=== PATIENT | female | born 1955 | race Hispanic/Latino ===

== ENCOUNTER 2017-01-06 08:45 | Emergency (ER) | payer BC, SELFPAY ==
[2017-01-06] MEDS ORDERED: Iopamidol 370 76% 100 ML VIAL ONE (09:00)
[2017-01-06] MEDS ORDERED: Ondansetron HCl/PF 4 MG/2 ML Vial ONE (09:19)
[2017-01-06] MEDS ORDERED: Morphine 4 MG/ML Carpuject ONE (09:19)
[2017-01-06 09:38] LABS: #Basophils 0.1 thou/uL (0.0-0.2); #Eosinphils 0.1 thou/uL (0.0-0.7); #Lymphocytes 1.1 thou/uL (1.20-3.40); #Monocytes 0.7 thou/uL (0.11-0.59); #Neutrophils 11.6 thou/uL (1.40-6.50); %Basophils 0.8 % (0.0-1.0); %Eosinophils 0.6 % (0.0-10.0); %Lymphocytes 8.3 % (21.0-51.0); %Monocytes 5.3 % (0.0-10.0); Hematocrit 37.4 % (36.0-47.0); Mean Platelet Volume 7.7 fL (7.4-10.4); Red Blood Cell (RBC) Count 4.19 mill/uL (4.20-5.40); White Blood Cell (WBC) Count 13.6 thou/uL (4.8-10.8)
[2017-01-06 09:55] LABS: Prothrombin Time 13.5 SEC (12.0-14.7)
[2017-01-06 09:56] LABS: PTT 33.3 SEC (22.9-36.1)
[2017-01-06 10:02] LABS: ALT (SGPT) 23 U/L (8-55); AST (SGOT) 15 U/L (5-34); Alkaline Phosphatase 63 U/L (40-150); Anion Gap 16 mmol/L (10-20); BUN (Urea Nitrogen) 15 mg/dL (9.8-20.1); Bilirubin, Total 1.5 mg/dL (0.2-1.2); Calc. Creatinine Clearance 0 mL/min (70-130); Calcium 9.3 mg/dL (7.8-10.44); Carbon Dioxide 22 mmol/L (22-29); Chloride 104 mmol/L (98-107); Estimated GFR-MDRD Greater than 90; Lipase 10 U/L (8-78); Magnesium 1.8 mg/dL (1.6-2.6); Protein, Total 7.1 g/dL (6.0-8.3)
[2017-01-06 10:06] LABS: Lactic Acid - Sepsis 1.8 mmol/L (0.5-2.2)
[2017-01-06 11:56] LABS: Bilirubin Negative (Negative); Blood, Urine Negative (Negative); Glucose, Urine (Dipstick) Negative (Negative); Ketone, Urine Negative (Negative); Nitrite Negative (Negative); Protein, Urine (Dipstick) Negative (Neg-Trace); Urobilinogen 0.2 mg/dL (0.2-1.0)
[2017-01-06 12:04] LABS: Bacteria/HPF 2+ HPF (None Seen); RBC/HPF None Seen HPF (0-3)
--- NOTE | 2017-01-06 12:07 | CT ---
CT OF THE ABDOMEN AND PELVIS WITH IV CONTRAST: INDICATIONS: Right upper quadrant and right lower quadrant pain. FINDINGS: There is bibasilar atelectasis. There is fatty infiltration of the liver. The gallbladder is surgi candido absent. The pancreas, adrenal glands, and spleen appear within normal limits. There are tiny hypodensities involving both kidneys that are difficult to characterize due to their size, but are statistically likely reflective of cysts. No free fluid or enlarged lymph nodes are evident. There is a fat-containing paraumbilical hernia. There is a normal appendix in the right lower quadrant. No free fluid is evident. The bladder, rec nilesh, and perirectal soft tissues are unremarkable. There are a few scattered diverticula present wi thout evidence of active diverticulitis. No definite acute osseous abnormality is evident. IMPRESSION: 1. Fat-containing paraumbilical hernia. 2. Fatty liver. 3. Cholecystectomy. 4. Renal hypodensity, too small to characterize. 5. Colonic diverticulosis. 6. Normal appendix. POS: [facility]
--- NOTE | 2017-01-06 13:07 | RAD ---
SEMIUPRIGHT PORTABLE CHEST 1 VIEW: Date: 01/06/17 HISTORY: 61-year-old female with fever and abdominal pain. FINDINGS/IMPRESSION: Heart size is within normal limits. The lungs are clear. No pneumonia, edema, pleural effusion, or o ther acute intrathoracic disease. POS: [facility]
[2017-01-06] MEDS ORDERED: Ciprofloxacin 500 MG TAB ONE (14:05)
[2017-01-06] MEDS ORDERED: Acetaminophen/Codeine 30-300mg Tablet ONE (14:05)
== END 2017-01-06 14:19 | disposition home or self-care (01) ==
LOC: SCSER 08:45
DX: N39.0 Urinary tract infection, site not specified (principal); E11.9 Type 2 diabetes mellitus without complications; I10 Essential (primary) hypertension; F32.9 Major depressive disorder, single episode, unspecified; Z79.84 Long term (current) use of oral hypoglycemic drugs; Z79.899 Other long term (current) drug therapy
CPT/HCPCS: 71010; 74177; 80053; 81003; 81015; 83605; 83690; 83735; 85025; 85610; 85730; 87040; 87077; 87149; 87186; 93005; 96374; 96375; J2270; J2405

== ENCOUNTER 2017-01-09 00:12 | Inpatient (IN) | payer OTHER, SELFPAY ==
[2017-01-09] MEDS ORDERED: Ketorolac Tromethamine 30 MG/ML VIAL ONE (00:31)
[2017-01-09] MEDS ORDERED: Ondansetron HCl/PF 4 MG/2 ML Vial ONE (00:31)
[2017-01-09 00:50] LABS: #Eosinphils 0.1 thou/uL (0.0-0.7); #Lymphocytes 0.8 thou/uL (1.20-3.40); #Monocytes 0.6 thou/uL (0.11-0.59); #Neutrophils 6.1 thou/uL (1.40-6.50); %Basophils 0.5 % (0.0-1.0); %Eosinophils 1.6 % (0.0-10.0); %Lymphocytes 10.5 % (21.0-51.0); %Monocytes 7.5 % (0.0-10.0); Hematocrit 32.7 % (36.0-47.0); Mean Platelet Volume 7.3 fL (7.4-10.4); Red Blood Cell (RBC) Count 3.75 mill/uL (4.20-5.40); White Blood Cell (WBC) Count 7.6 thou/uL (4.8-10.8)
[2017-01-09] MEDS ORDERED: Sodium Chloride 0.9% 100 ML ONE (00:54)
[2017-01-09] MEDS ORDERED: cefTRIAXone\\ROCEPHIN 2 GM VIAL ONE (00:54)
[2017-01-09 01:08] LABS: ALT (SGPT) 32 U/L (8-55); AST (SGOT) 19 U/L (5-34); Alkaline Phosphatase 88 U/L (40-150); Anion Gap 14 mmol/L (10-20); BUN (Urea Nitrogen) 20 mg/dL (9.8-20.1); Bilirubin, Total 1.1 mg/dL (0.2-1.2); Calc. Creatinine Clearance 0 mL/min (70-130); Calcium 9.1 mg/dL (7.8-10.44); Carbon Dioxide 23 mmol/L (22-29); Chloride 102 mmol/L (98-107); Estimated GFR-MDRD 89; Globulin 3.2 g/dL (2.4-3.5); Lactic Acid - Sepsis 0.7 mmol/L (0.5-2.2); Lipase 10 U/L (8-78); Protein, Total 6.9 g/dL (6.0-8.3)
[2017-01-09 01:27] LABS: Bilirubin Negative (Negative); Blood, Urine Trace (Negative); Glucose, Urine (Dipstick) Negative (Negative); Ketone, Urine Negative (Negative); Nitrite Negative (Negative); Protein, Urine (Dipstick) 30 mg/dL (Neg-Trace)
[2017-01-09 01:38] LABS: RBC/HPF 0-3 HPF (0-3); Squamous Epithelial 0-3 HPF (0-3); WBC/HPF 0-3 HPF (0-3)
[2017-01-09 01:39] LABS: Bacteria/HPF Rare-Few HPF (None Seen); Hyaline Casts/LPF 0-3 HYALINE CAST LPF (0-3 Hyaline)
[2017-01-09] MEDS ORDERED: Acetaminophen 500 MG TAB PO PRN (03:58)
[2017-01-09] MEDS ORDERED: Ondansetron ODT 4 MG TAB PO PRN (03:58)
[2017-01-09] MEDS ORDERED: hydrALAZINE 20 MG/ML VIAL SLOW IVP PRN (03:58)
[2017-01-09] MEDS ORDERED: Dextrose 50% Abboject 50 ML SYRINGE SLOW IVP PRN (03:58)
[2017-01-09] MEDS ORDERED: Ondansetron HCl/PF 4 MG/2 ML Vial IVP PRN (03:58)
[2017-01-09] MEDS ORDERED: cloNIDine 0.1 MG TAB PO PRN (03:58)
[2017-01-09] MEDS ORDERED: Dextrose 5% in Water 1,000 ML IV PRN (03:58)
[2017-01-09] MEDS ORDERED: HumaLOG 300 UNITS/3 ML VIAL SC PRN ×2 (03:58)
[2017-01-09] MEDS ORDERED: [UNRECOGNIZED DRUG - OTHER] IVPB PRN (04:02)
[2017-01-09] MEDS ORDERED: VANCOMYCIN IVPB PRN (04:02)
[2017-01-09] MEDS: Sodium Chloride 0.9% 1,000 ML IV SCH ×5 (04:38→23:16)
[2017-01-09 04:47] LABS: Lactic Acid - Sepsis 0.9 mmol/L (0.5-2.2)
[2017-01-09] MEDS: Levothyroxine Sodium 50 MCG TAB PO SCH (05:35)
[2017-01-09] MEDS: Ampicillin 2 GM, Syringe 5.2 ML in Sterile Water 14.8 ML SLOW IVP SCH ×4 (05:38→23:21)
[2017-01-09] MEDS: Ketorolac Tromethamine 30 MG/ML VIAL IVP SCH ×4 (05:39→23:17)
[2017-01-09] MEDS ORDERED: Ampicillin 2 GM in Sodium Chloride 0.9% 100 ML IVPB SCH (06:00)
--- NOTE | 2017-01-09 08:49 | HP ---
DATE OF ADMISSION: 01/09/2017 PRIMARY CARE PROVIDER: Dr. Walker. CHIEF COMPLAINT: Right flank and abdominal pain. HISTORY OF PRESENT ILLNESS: This is a 61-year-old female who presents to [facility] in transfer from [facility] after presenting with p ersistent right flank and abdominal pain. Patient states the symptoms began approximately 4 days pr ior with right flank pain and mild dysuria presenting to urgent care for evaluation. Patient was in itially evaluated and diagnosed with urinary tract infection, treated with ciprofloxacin, acetaminop hen, and released home. Patient returned within 24 hours with persistent and increasing pain in the right flank region and abdominal wall, undergoing evaluation. Blood cultures x2 drawn on 7 at 9:30 a.m. revealed group C streptococcus species in both sets of blood cultures. Patient was t reated with IV vancomycin and Rocephin and transferred to [facility] for furt her IV antibiotic therapy. Patient states she has had no similar history of urinary tract infection s. Patient does state that she returned from a recent cruise within the last 2 weeks. Patient carmen ed any history of diarrhea, some nausea without emesis. Patient states her last bowel movement was approximately 4 days prior to this evaluation. Patient states she was recently diagnosed with diabe michele mellitus, placed on metformin with dietary modification. Patient denied any prominent fever, bu t felt chilled. Patient denied any hematuria, hematemesis, or melena. Patient states she had a his tory of gallstones, undergoing a cholecystectomy remotely, but no recent surgical interventions. Aaron preston denies any recent exposure to antibiotic therapy. Patient underwent CT imaging of the abdomen and pelvis on 01/06/2017 showing no acute process and normal appearing appendix. Patient underwent repeat CT imaging of the abdomen and pelvis on 01/09/2017 showing no acute findings. Patient was t ransferred to [facility] as stated previously for admission. PAST MEDICAL HISTORY: 1. Diabetes mellitus type 2 on oral hypoglycemics. 2. Hypertension. 3. Hypothyroidism. PAST SURGICAL HISTORY: Status post cholecystectomy. CURRENT MEDICATIONS: 1. Levothyroxine 50 mcg 1 tablet p.o. daily. 2. Lisinopril 20 mg p.o. b.i.d. 3. Metformin 500 mg p.o. b.i.d. ALLERGIES: No known drug allergies. FAMILY HISTORY: No inheritable diseases per patient report. SOCIAL HISTORY: Patient is , residing in [place], [place]. No current alcohol, tobacco or il licit drug use. REVIEW OF SYSTEMS: The following complete review of systems was negative, unless otherwise mentione d in the HPI or below: CONSTITUTIONAL: Weight loss or gain, ability to conduct usual activities. SKIN: Rash, itching. EYES: Double vision, pain. ENT/MOUTH: Nose bleeding, neck stiffness, pain, tenderness. CARDIOVASCULAR: Palpitations, dyspnea on exertion, orthopnea. RESPIRATORY: Shortness of breath, wheezing, cough, hemoptysis, fever or night sweats. GASTROINTESTINAL: Poor appetite, abdominal pain, heartburn, nausea, vomiting, constipation, or diar brendan. GENITOURINARY: Urgency, frequency, dysuria, nocturia. MUSCULOSKELETAL: Pain, swelling. NEUROLOGIC/PSYCHIATRIC: Anxiety, depression. ALLERGY/IMMUNOLOGIC: Skin rash, bleeding tendency. Otherwise negative except as stated per HPI. PHYSICAL EXAMINATION: VITAL SIGNS: Currently, blood pressure 156/80, pulse 69, respiratory rate is 18, temperature 98.2 d egrees Fahrenheit, O2 saturation 93% on room air. GENERAL APPEARANCE: This is a 61-year-old female, tired and ill-appearing, responsive to q uestions. HEENT: Pupils are equal, round, and reactive to light and accommodation. Extraocular muscles are i ntact. No scleral icterus, no conjunctival injection. Nares patent. OP is clear. Oral mucosa dry appearing. NECK: Supple, no cervical adenopathy, no thyromegaly, no carotid bruits, no JVD appreciated. Cervi marleny spine with full active and passive range of motion. CHEST: Lungs are clear to auscultation bilaterally with diminished breath sounds in the bases. CARDIOVASCULAR: S1 and S2, without noted murmur. ABDOMEN: Obese, soft with tenderness to palpation in the right upper quadrant and right flank with right CVA tenderness. Bowel sounds are positive in all four quadrants. No palpable mass. [place] s are difficult to palpate due to patient's body habitus. EXTREMITIES: Warm and dry with fair turgor. No clubbing, cyanosis or asymmetric edema appreciated. Pulses palpable distally at the dorsalis pedis, posterior tibial, and popliteal arteries bilateral ly. Capillary refill less than 2 seconds. NEUROLOGIC: Cranial nerves II-XII are grossly intact. No focal or lateralizing signs appreciated. PERTINENT LABORATORY DATA AND X-RAY FINDINGS: Basic metabolic profile within normal limits. Glucos e 115. Lactic acid level 0.7, calcium 9.1. LFTs within normal limits. Lipase 10. CBC showed a [facility] blood cell count of 7.6, hemoglobin 11, hematocrit 33, platelet count 223 with 80% neutrophilia. Urinalysis positive for protein and trace blood. Blood cultures x2 from 01/06/2017, 2/2 positive for group C streptococcus species, sensitive to vancomycin and ampicillin. Portable chest x-ray deanna ed on 01/06/2017 showed no acute cardiopulmonary process. CT of the abdomen and pelvis dated on showed no acute intraabdominal process. ASSESSMENT AND PLAN: 1. Sepsis/systemic inflammatory response syndrome secondary to the group C streptococcus, urinary t ract infection. We will admit to the medical floor. Continue vancomycin 1.25 grams IV q.12 hours w ith additional ampicillin 2 grams IV q.6 hours. We will continue double coverage for group C strept ococcus for approximately 24 hours, deescalating coverage to single agent. Continue intravenous flu ids with normal saline at 125 mL per hour. Continue sepsis protocol bundle. Repeat CBC in the a.m. 2. Abdominal/right flank pain. Suspect early pyelonephritis with group C streptococcus. Continue IV antibiotic therapy as outlined in #1. 3. Diabetes mellitus type 2. Hold metformin during acute infection. Insulin sliding scale for ref lexive coverage. Accu-Cheks before meals and at bedtime. 4. Hypothyroidism. Resume levothyroxine 50 mcg p.o. daily. 5. Hypertension. Resume lisinopril 20 mg p.o. b.i.d. 6. Prophylaxis. Sequential compression devices while in bed, Pepcid 20 mg p.o. b.i.d. 7. Code status is FULL. Surrogate medical decision maker is patient's spouse.
[2017-01-09] MEDS ORDERED: FLU VACC QS2017-18 36 mo. & older 0.5 ML SYRINGE IM ONE (09:00)
[2017-01-09] MEDS: Famotidine 20 MG TAB PO SCH ×2 (09:03→21:05)
--- NOTE | 2017-01-09 09:22 | CT ---
PRELIMINARY REPORT/[facility]/EMERGENCY AFTER HOURS PROCEDURE: EXAM: CT Abdomen and Pelvis With Intravenous Contrast CLINICAL HISTORY: 61 years old, female; Pain; Abdominal pain; Patient HX: Patient presents for evaluation of abdominal pain. Symptoms are localized, most severe in the right lower quadrant, radiation, to the back, no m igration of pain. TECHNIQUE: Axial computed tomography images of the abdomen and pelvis with intravenous contrast. Coronal reformatted images were created and reviewed. COMPARISON: No relevant prior studies available. FINDINGS: Lower thorax: No acute findings. ABDOMEN: Liver: Normal. Gallbladder and bile ducts: Gallbladder is surgically absent. Pancreas: Normal. Spleen: Normal. Adrenals: Normal. Kidneys and ureters: Simple right renal cyst. Stomach and bowel: Normal. Appendix: No findings to suggest acute appendicitis. PELVIS: Bladder: Normal. Reproductive: Normal as visualized. ABDOMEN and PELVIS: Intraperitoneal space: Normal. No free air. No significant fluid collection. Bones/joints: Multilevel thoracolumbar spine degenerative changes. No acute fracture. No dislocation . Soft tissues: Small fat-containing ventral hernia, without acute complications. Vasculature: Multiple phleboliths within the pelvis. No abdominal aortic aneurysm. Lymph nodes: Normal. IMPRESSION: 1. No acute findings. 2. Non-acute findings are described above. Thank you for allowing us to participate in the care of your patient. Dictated and Authenticated by: Camilo Borjas MD 01/09/2017 1:51 AM Central Time ([place] \T\ [place]) FINAL REPORT CT OF ABDOMEN AND PELVIS: DATE: 01/09/17. COMPARISON: 01/06/17. HISTORY: Abdominal pain, most severe in the right lower quadrant. FINDINGS: No free intraperitoneal air or fluid. Diffuse hypodensity of the hepatic parenchyma suggests steato sis with probable sparing in the region of the gallbladder fossa. Cholecystectomy clips are present. Spleen, pancreas, adrenal glands, and kidneys demonstrate no acu te findings. There is a fat-containing lobulated umbilical hernia. Scattered colonic diverticulosis noted with no evidence for diverticulitis. Appendix appears within normal limits. No evidence for bowel obstruction. Vascular structures appear patent. No lymphade nopathy noted. No acute osseous abnormality. IMPRESSION: No acute findings. POS: [facility]
[2017-01-09] MEDS: Vancomycin HCl 1.25 GM in Sodium Chloride 0.9% 250 ML 250 ML IVPB SCH (12:20)
[2017-01-09] MEDS ORDERED: Heparin 1,000 UNITS/ML VIAL ONE (17:01)
[2017-01-10] MEDS: Vancomycin HCl 1.25 GM in Sodium Chloride 0.9% 250 ML 250 ML IVPB SCH ×2 (00:58→11:07)
[2017-01-10 05:04] LABS: Band 4 % (5-11); Hematocrit 34.9 % (36.0-47.0); Mean Platelet Volume 7.4 fL (7.4-10.4); Neutrophil 54 % (42-75); Red Blood Cell (RBC) Count 3.81 mill/uL (4.20-5.40); White Blood Cell (WBC) Count 5.5 thou/uL (4.8-10.8)
[2017-01-10 05:14] LABS: ALT (SGPT) 36 U/L (8-55); AST (SGOT) 25 U/L (5-34); Alkaline Phosphatase 89 U/L (40-150); Anion Gap 12 mmol/L (10-20); BUN (Urea Nitrogen) 12 mg/dL (9.8-20.1); Bilirubin, Total 0.7 mg/dL (0.2-1.2); Calc. Creatinine Clearance 120 mL/min (70-130); Calcium 8.7 mg/dL (7.8-10.44); Carbon Dioxide 23 mmol/L (22-29); Chloride 106 mmol/L (98-107); Estimated GFR-MDRD Greater than 90; Globulin 3.2 g/dL (2.4-3.5); Protein, Total 6.6 g/dL (6.0-8.3)
[2017-01-10] MEDS: Ketorolac Tromethamine 30 MG/ML VIAL IVP SCH ×3 (05:25→18:18)
[2017-01-10] MEDS: Sodium Chloride 0.9% 1,000 ML IV SCH ×3 (05:28→20:55)
[2017-01-10] MEDS: Levothyroxine Sodium 50 MCG TAB PO SCH (05:29)
[2017-01-10] MEDS: Ampicillin 2 GM, Syringe 5.2 ML in Sterile Water 14.8 ML SLOW IVP SCH ×2 (05:40→10:59)
[2017-01-10] MEDS: metFORMIN 500 MG TAB PO SCH ×2 (09:40→20:51)
[2017-01-10] MEDS: Lisinopril 20 MG TAB PO SCH ×2 (09:40→20:51)
[2017-01-10] MEDS: Famotidine 20 MG TAB PO SCH ×2 (09:41→20:51)
[2017-01-10] MEDS: Morphine 4 MG/ML VIAL SLOW IVP PRN (10:59)
[2017-01-10 11:00] LABS: Amphetamine Not Detected (NotDetected); Methadone Not Detected (NotDetected); Methamphetamine Not Detected (NotDetected)
[2017-01-10 11:39] LABS: Vancomycin, Trough 8.9 ug/mL
--- NOTE | 2017-01-10 13:24 | PDOC.PN ---
- Subjective Encounter Start Date: 01/10/17 Encounter Start Time: 10:15 -: old records requested/rev Patient seen and examined. still has right lumbar pain, no fever. No overnight events - Objective Resuscitation Status: Resuscitation Status FULL:Full Resuscitation MAR Reviewed: Yes Vital Signs & Weight: Vital Signs (12 hours) Temp Pulse Resp BP BP Pulse Ox 01/10/17 12:17 98.6 F 65 18 177/78 H 94 L 01/10/17 09:40 159/84 H 01/10/17 08:00 98.8 F 65 16 159/84 H 94 L I&O: 01/09/17 01/10/17 01/11/17 06:59 06:59 06:59 Intake Total 540 2610 Balance 540 2610 Result Diagrams: 01/10/17 04:33 01/10/17 04:33 Additional Labs: Accuchecks 01/10/17 01/10/17 01/09/17 12:17 04:39 19:40 POC Glucose 127 H 80 149 H 01/09/17 01/09/17 15:41 11:34 POC Glucose 83 105 Radiology Reviewed by me: Yes Phys Exam - Physical Examination Constitutional: NAD HEENT: PERRLA, moist MMs, sclera anicteric Neck: no JVD, supple Respiratory: no wheezing, no rales, no rhonchi Cardiovascular: RRR, no significant murmur, no rub Gastrointestinal: soft, non-tender, no distention, positive bowel sounds right lumbar pain Musculoskeletal: no edema, pulses present Neurological: non-focal, normal sensation, moves all 4 limbs Lymphatic: no nodes Psychiatric: normal affect, A&O x 3 Skin: no rash, normal turgor Dx/Plan (1) Bacteremia due to Streptococcus Code(s): R78.81 - BACTEREMIA; B95.5 - UNSP STREPTOCOCCUS THE CAUSE OF DISEASES CLASSD [id number] Status: Acute Comment: group C streptococcus (2) Sepsis Code(s): A41.9 - SEPSIS, UNSPECIFIED ORGANISM Status: Acute (3) Diabetes type 2, controlled Code(s): E11.9 - TYPE 2 DIABETES MELLITUS WITHOUT COMPLICATIONS Status: Chronic (4) Hypertension Code(s): I10 - ESSENTIAL (PRIMARY) HYPERTENSION Status: Chronic (5) Hypothyroidism Code(s): E03.9 - HYPOTHYROIDISM, UNSPECIFIED Status: Chronic - Plan cont current plan of care, continue antibiotics * echo * consult ID * continue IVF * continue vancomycin and ampicillin * follow up on repeat blood culture * medication reviewed as below * symptomatic treatment * add morphin for pain control. Review of Systems - Review of Systems Constitutional: negative: Fever, Chills, Sweats, Weakness, Malaise, Other Eyes: negative: Pain, Vision Change, Conjunctivae Inflammation, Eyelid Inflammation, Redness, Other ENT: negative: Ear Pain, Ear Discharge, Nose Pain, Nose Discharge, Nose Congestion, Mouth Pain, Mouth Swelling, Throat Pain, Throat Swelling, Other Respiratory: negative: Cough, Dry, Shortness of Breath, Hemoptysis, SOB with Excertion, Pleuritic Pain, Sputum, Wheezing Cardiovascular: negative: Chest Pain, Palpitations, Orthopnea, Paroxysmal Noc. Dyspnea, Edema, Light Headedness, Other Gastrointestinal: Abdominal Pain. negative: Nausea, Vomiting, Diarrhea, Constipation, Melena, Hematochezia, Other Genitourinary: negative: Dysuria, Frequency, Incontinence, Hematuria, Retention , Other Musculoskeletal: negative: Neck Pain, Shoulder Pain, Arm Pain, Back Pain, Hand Pain, Leg Pain, Foot Pain, Other Skin: negative: Rash, Lesions, Nilson, Bruising, Other - Medications/Allergies Allergies/Adverse Reactions: Allergies Allergy/AdvReac Type Severity Reaction Status Date / Time No Known Allergies Allergy Unverified 01/09/17 02:11 Medications: Current Medications Acetaminophen (Tylenol) 1,000 mg PO Q6H PRN PRN Reason: Headache/Fever or Mild Pain Clonidine (Catapres) 0.1 mg PO Q4H PRN PRN Reason: Systolic BP > 180 Dextrose/Water (Dextrose 50%) 25 gm SLOW IVP PRN PRN PRN Reason: Hypoglycemia Famotidine (Pepcid) 20 mg PO BID SANTOSH Last Admin: 01/10/17 09:41 Dose: 20 mg Glucagon (Glucagon) 1 mg IM PRN PRN PRN Reason: Hypoglycemia Hydralazine HCl (Apresoline) 10 mg SLOW IVP Q4H PRN PRN Reason: Systolic BP > 180 Dextrose/Water (D5w) 1,000 mls @ 0 mls/hr IV .Q0M PRN; As Directed PRN Reason: Hypoglycemia Sodium Chloride (Normal Saline 0.9%) 1,000 mls @ 125 mls/hr IV .Q8H FOR[facility], [facility]1983 Last Admin: 01/10/17 09:39 Dose: 1,000 mls Ampicillin Sodium 2 gm/ (Syringe 5.2 ml/ Sterile Water) 20 mls @ 60 mls/hr SLOW IVP 0500,1100,1700,2300 [facility], [facility]1983 Last Admin: 01/10/17 10:59 Dose: 20 mls Vancomycin HCl 1.25 gm/ Sodium (Chloride) 250 mls @ 166.67 mls/hr IVPB 0400, 1200,2000 [facility], [facility]1983 Insulin Human Lispro (Humalog) 0 units SC .MILD SLIDING SCALE PRN PRN Reason: Mild Correctional Scale Insulin Human Lispro (Humalog) 0 units SC .BEDTIME SLIDING SC PRN PRN Reason: Bedtime Correctional Scale Ketorolac Tromethamine (Toradol) 30 mg IVP Q6HR [facility], [facility]1983 Stop: 01/14/17 06:01 Last Admin: 01/10/17 11:30 Dose: 30 mg Levothyroxine Sodium (Synthroid) 50 mcg PO 0600 [facility], [facility] Last Admin: 01/10/17 05:29 Dose: 50 mcg Lisinopril (Zestril) 20 mg PO BID [facility] Last Admin: 01/10/17 09:40 Dose: 20 mg Metformin HCl (Glucophage) 500 mg PO BID [facility] Last Admin: 01/10/17 09:40 Dose: 500 mg Miscellaneous Medication (Pharmacy To Dose) 1 each IVPB PRN PRN PRN Reason: SEPSIS Morphine Sulfate (Morphine Sulfate) 4 mg SLOW IVP Q4H PRN PRN Reason: Pain Last Admin: 01/10/17 10:59 Dose: 4 mg Ondansetron HCl (Zofran Odt) 4 mg PO Q6H PRN PRN Reason: Nausea/Vomiting Ondansetron HCl (Zofran) 4 mg IVP Q6H PRN PRN Reason: Nausea/Vomiting Sodium Chloride (Flush - Normal Saline) 10 ml IVF Q12HR [facility], [facility] Last Admin: 01/10/17 09:42 Dose: Not Given Sodium Chloride (Flush - Normal Saline) 10 ml IVF PRN PRN PRN Reason: Saline Flush
--- NOTE | 2017-01-10 14:21 | CON ---
DATE OF CONSULTATION: 01/10/2017 REASON FOR CONSULTATION: Bacteremia. HISTORY OF PRESENT ILLNESS: A 61-year-old who has now at her first admission to [facility]. She has a history of type 2 diabetes, hypertension, and was in her usual state of health until 4 days prior to admission, which developed pain in the right flank radiating to the back area, although in the note, dysuria is mentioned. She denies any genitourinary symptoms at this point in time during this interview. She was seen at the emergency room in [facility] and she was given a diagnosis of urinary tract infection. The urinalysis done then showed 4-6 wbc's, but no samples for urine culture were submitted. She was treated with levofloxacin subsequently two sets of blood cultures were obtained, then returned positive for group C Streptococcus and because of persistence of pain and the findings in the blood cultures, she was admitted. The pain now has shifted more towards the back area in the lumbosacral paravertebral region, is a little bit in the right posterior subcostal region, right side. The pain has significantly alleviated over the past few hours, possibly associated with analgesia. The patient has been started on broad-spectrum coverage. Currently, she denies headaches, visual symptoms, sore throat, odynophagia, dysphagia. No cough or sputum production or chest pain. No other type of abdominal pain or diarrhea. No genitourinary symptoms. Again, she denies dysuria in the past few weeks. No joint symptoms. No skin disorder. No neurological symptoms. PAST MEDICAL HISTORY: Type 2 diabetes, hypertension, hypothyroidism, and reportedly had urinary tract infections treated in the outpatient setting in the past. PAST SURGICAL HISTORY: She had a history of cholecystectomy in the remote past. ALLERGIES: None. MEDICATIONS: Had been on levothyroxine, lisinopril, metformin, and currently on ampicillin, famotidine, hydralazine, insulin, metformin, vancomycin. PHYSICAL EXAMINATION: VITAL SIGNS: She has been T-max 100.7, she is now 98.6, blood pressure 170/70, pulse 65, respirations 18, O2 sat 94%. SKIN: Normal. She has a peripheral IV access. No Mario catheter. No lymphadenopathy. HEENT: Ocular movements are conjugate. Sclerae white. Pupils are equal. Oral cavity normal. NECK: Supple, no jugular venous distention. LUNGS: Symmetric. Clear breath sounds. HEART: S1, S2 with regular rate. No S3, S4. ABDOMEN: Soft. At this point, no tenderness even though with deep palpation on the right side, both front and back. No suprapubic distention. EXTREMITIES: No joint inflammatory activity. Pulses are 1+ in dorsalis pedis. Moves all extremities equally. Plantar responses are flexure. NEUROLOGIC: Cognitive function appears to be intact. LABORATORY DATA: White cell count of 7.6 and now 5.5, hemoglobin 11.4, platelets 258, 79% neutrophils. Creatinine 0.65. Liver profile normal. Albumin 3.4, globulin 2.2. Urinalysis essentially normal. Toxicology is negative. HIV, hepatitis C serology negative. Patient had two CT of the abdomen and pelvis with IV contrast and the first one on 01/06/2017 that showed periumbilical hernia, cholecystectomy, colonic diverticulosis. The second one was pretty much the same findings. She did have evidence of thoracolumbar spine degenerative changes. ASSESSMENT: 1. Diabetes, type 2. 2. Group C Streptococcus bacteremia. 3. Pain in the right flank and right back area. DISCUSSION: Differential diagnosis includes musculoskeletal pain with pyomyositis. Renal infection with pyelonephritis is much less likely in view of the findings in the urinalysis as well as the absence of findings suggestive of pyelonephritis on CT scan. A spinal infection would be the next area of concern particularly with radiculopathy and depending on clinical progress, we may have to order an MRI of the lower thoracic and upper lumbosacral spine area particularly the possibility of facet joint infection. Switch to Rocephin eventually transitioned to oral medication. MTDD
[2017-01-10] MEDS: cefTRIAXone\\ROCEPHIN 2 GM, Admixture Fee 1 EACH in Sodium Chloride 0.9% 100 ML IVPB SCH (16:12)
[2017-01-10] MEDS ORDERED: Vancomycin HCl 1.25 GM in Sodium Chloride 0.9% 250 ML 250 ML IVPB SCH (20:00)
[2017-01-10] MEDS: diphenhydrAMINE 25 MG CAP PO PRN (22:26)
[2017-01-11] MEDS: Ketorolac Tromethamine 30 MG/ML VIAL IVP SCH ×4 (01:01→17:56)
[2017-01-11] MEDS: Levothyroxine Sodium 50 MCG TAB PO SCH (05:28)
[2017-01-11] MEDS: Sodium Chloride 0.9% 1,000 ML IV SCH (05:34)
--- NOTE | 2017-01-11 05:58 | PDOC.PN ---
- Subjective Encounter Start Date: 01/11/17 Encounter Start Time: 05:57 has right lumbar and thoracic pain, has fever - Objective Resuscitation Status: Resuscitation Status FULL:Full Resuscitation MAR Reviewed: Yes Vital Signs & Weight: Vital Signs (12 hours) Temp Pulse Resp BP BP Pulse Ox 01/11/17 05:51 98.2 F 58 L 18 135/87 95 01/11/17 00:00 100.4 F H 64 18 166/81 H 93 L 01/10/17 20:51 175/80 H 01/10/17 20:00 98.5 F 65 16 175/80 H 92 L I&O: 01/09/17 01/10/17 01/11/17 06:59 06:59 06:59 Intake Total 540 2610 Balance 540 2610 Result Diagrams: 01/10/17 04:33 01/10/17 04:33 Additional Labs: Accuchecks 01/11/17 01/10/17 01/10/17 04:41 19:37 17:06 POC Glucose 97 145 H 104 01/10/17 12:17 POC Glucose 127 H Phys Exam - Physical Examination Constitutional: NAD HEENT: PERRLA, moist MMs, sclera anicteric Neck: no JVD, supple Respiratory: no wheezing, no rales, no rhonchi Cardiovascular: RRR, no significant murmur, no rub Gastrointestinal: soft, no distention, positive bowel sounds right lumbar and thoracic pain Musculoskeletal: no edema, pulses present Neurological: non-focal, normal sensation, moves all 4 limbs Lymphatic: no nodes Psychiatric: normal affect, A&O x 3 Skin: no rash, normal turgor Dx/Plan (1) Bacteremia due to Streptococcus Code(s): R78.81 - BACTEREMIA; B95.5 - UNSP STREPTOCOCCUS THE CAUSE OF DISEASES CLASSD ELSWHR Status: Acute Comment: group C streptococcus (2) Sepsis Code(s): A41.9 - SEPSIS, UNSPECIFIED ORGANISM Status: Acute (3) Diabetes type 2, controlled Code(s): E11.9 - TYPE 2 DIABETES MELLITUS WITHOUT COMPLICATIONS Status: Chronic (4) Hypertension Code(s): I10 - ESSENTIAL (PRIMARY) HYPERTENSION Status: Chronic (5) Hypothyroidism Code(s): E03.9 - HYPOTHYROIDISM, UNSPECIFIED Status: Chronic - Plan cont current plan of care, continue antibiotics * dr doe recommendation noted. * will get MRI thoracic and lumbar spine * medication reviewed as below * symptomatic treatment * echo pending * continue rocephin * DC IVF * follow repeat culture Review of Systems - Review of Systems Constitutional: Fever. negative: Chills, Sweats, Weakness, Malaise, Other ENT: negative: Ear Pain, Ear Discharge, Nose Pain, Nose Discharge, Nose Congestion, Mouth Pain, Mouth Swelling, Throat Pain, Throat Swelling, Other Respiratory: negative: Cough, Dry, Shortness of Breath, Hemoptysis, SOB with Excertion, Pleuritic Pain, Sputum, Wheezing Cardiovascular: negative: Chest Pain, Palpitations, Orthopnea, Paroxysmal Noc. Dyspnea, Edema, Light Headedness, Other Gastrointestinal: Abdominal Pain. negative: Nausea, Vomiting, Diarrhea, Constipation, Melena, Hematochezia, Other Genitourinary: negative: Dysuria, Frequency, Incontinence, Hematuria, Retention , Other Musculoskeletal: negative: Neck Pain, Shoulder Pain, Arm Pain, Back Pain, Hand Pain, Leg Pain, Foot Pain, Other Skin: negative: Rash, Lesions, Nilson, Bruising, Other - Medications/Allergies Allergies/Adverse Reactions: Allergies Allergy/AdvReac Type Severity Reaction Status Date / Time No Known Allergies Allergy Unverified 01/09/17 02:11 Medications: Current Medications Acetaminophen (Tylenol) 1,000 mg PO Q6H PRN PRN Reason: Headache/Fever or Mild Pain Clonidine (Catapres) 0.1 mg PO Q4H PRN PRN Reason: Systolic BP > 180 Dextrose/Water (Dextrose 50%) 25 gm SLOW IVP PRN PRN PRN Reason: Hypoglycemia Diphenhydramine HCl (Benadryl) 25 mg PO Q8H PRN PRN Reason: Allergies Last Admin: 01/10/17 22:26 Dose: 25 mg Famotidine (Pepcid) 20 mg PO BID [facility] Last Admin: 01/10/17 20:51 Dose: 20 mg Glucagon (Glucagon) 1 mg IM PRN PRN PRN Reason: Hypoglycemia Hydralazine HCl (Apresoline) 10 mg SLOW IVP Q4H PRN PRN Reason: Systolic BP > 180 Dextrose/Water (D5w) 1,000 mls @ 0 mls/hr IV .Q0M PRN; As Directed PRN Reason: Hypoglycemia Sodium Chloride (Normal Saline 0.9%) 1,000 mls @ 125 mls/hr IV .Q8H [facility] Last Admin: 01/11/17 05:34 Dose: 1,000 mls Ceftriaxone Sodium 2 gm/Miscellaneous Medication 1 each/ Sodium Chloride 100 mls @ 200 mls/hr IVPB 1500 [facility] Last Admin: 01/10/17 16:12 Dose: 100 mls Insulin Human Lispro (Humalog) 0 units SC .MILD SLIDING SCALE PRN PRN Reason: Mild Correctional Scale Insulin Human Lispro (Humalog) 0 units SC .BEDTIME SLIDING SC PRN PRN Reason: Bedtime Correctional Scale Ketorolac Tromethamine (Toradol) 30 mg IVP Q6HR [facility] Stop: 01/14/17 06:01 Last Admin: 01/11/17 05:28 Dose: 30 mg Levothyroxine Sodium (Synthroid) 50 mcg PO 0600 [facility] Last Admin: 01/11/17 05:28 Dose: 50 mcg Lisinopril (Zestril) 20 mg PO BID [facility] Last Admin: 01/10/17 20:51 Dose: 20 mg Metformin HCl (Glucophage) 500 mg PO BID [facility] Last Admin: 01/10/17 20:51 Dose: 500 mg Morphine Sulfate (Morphine Sulfate) 4 mg SLOW IVP Q4H PRN PRN Reason: Pain Last Admin: 01/10/17 10:59 Dose: 4 mg Ondansetron HCl (Zofran Odt) 4 mg PO Q6H PRN PRN Reason: Nausea/Vomiting Ondansetron HCl (Zofran) 4 mg IVP Q6H PRN PRN Reason: Nausea/Vomiting Sodium Chloride (Flush - Normal Saline) 10 ml IVF Q12HR [facility] Last Admin: 01/10/17 20:55 Dose: Not Given Sodium Chloride (Flush - Normal Saline) 10 ml IVF PRN PRN PRN Reason: Saline Flush
[2017-01-11] MEDS: Morphine 4 MG/ML VIAL SLOW IVP PRN (06:36)
[2017-01-11] MEDS: Famotidine 20 MG TAB PO SCH ×2 (07:50→20:56)
[2017-01-11] MEDS: Lisinopril 20 MG TAB PO SCH ×2 (07:50→20:57)
[2017-01-11] MEDS: metFORMIN 500 MG TAB PO SCH ×2 (07:50→20:57)
--- NOTE | 2017-01-11 15:51 | MRI ---
LUMBAR SPINE MRI WITH AND WITHOUT CONTRAST: INDICATION: Right side thoracic and lumbar pain, leg pain. FINDINGS: Lumbar spine vertebral body heights are maintained. Intrinsic T1 hyperintensity of the L5 and L2 whitney tebral bodies is compatible with an interosseous hemangioma. Slight degenerative disk space narrowin g at L5-S1 as well as at the T11-12 level. There is no subluxation. There is straightening of the n ormal lumbar lordosis. Conus medullaris terminates at the L1 level. Mild multilevel disk bulge of t he lumbar spine present with mild ventral thecal sac effacement, although no high-grade central canal stenosis. Mild bilateral neural foraminal narrowing at L5-S1 is present. There is mild bilateral L 4-5 level foraminal narrowing. No high-grade foraminal stenosis of the upper mid lumbar spine otherw ise depicted. Postcontrast imaging reveals no mass producing enhancement of the vertebral canal. No acute disk space inflammatory enhancement. The imaged retroperitoneum reveals T2 hyperintensities o f each kidney, incompletely assessed. There is mild to moderate multilevel lateral facet osteoarthri tis. IMPRESSION: Multilevel degenerative change of the lumbar spine. There is no pathologic enhancement of vertebral canal or evidence to indicate acute diskitis. POS: [facility]
--- NOTE | 2017-01-11 16:47 | MRI ---
THORACIC SPINE MRI WITH AND WITHOUT CONTRAST 01/11/17 CLINICAL HISTORY: Right back pain, bacteremia. FINDINGS: There is abnormal dural based enhancement of the vertebral canal spanning the low thoracic from appro ximate T10 level through the upper lumbar spine. There is an ovoid peripherally enhancing low signal intensity collection by T1 weighted imaging posterior to the anterior vertebral column at the approxi mate T11 level which is consistent with an epidural abscess and to the right of midline, which spans a craniocaudal dimension of 2.2 cm, and transverse measures 0.8 cm. There is no obvious, adjacent int ramedullary enhancement to confirm associated myelitis. There is patient motion throughout the exam. Exam is not tailored to evaluate for degenerative diseas e and associated central canal/foraminal compromise. No pathologic marrow enhancement evident. There is inflammation with surrounding enhancement involving the right T11-12 facet. IMPRESSION: Pathologic enhancement within the vertebral canal, which is dural based in location, with an associat ed epidural abscess of the anterior aspect of the vertebral canal at the approximate T11 level. This does efface the ventral aspect of the thoracic spinal cord and there is enhancement encroaching upon adjacent right sided neural foramina of the low thoracic spine. Given prominent enhancement about the right side facet of the T11-12 level, this could raise from a septic arthritis. Alternatively, could relate to a hematogenous spread of infection. There is likely an associated right side neuritis of t he T11-12 level and possibly T10-11 level given extension of enhancement. Telephone called placed to ordering physician, Marin Burkett, at time of interpretation, 1605 hour s, 01/11/17. Code CR POS: [facility]
[2017-01-11] MEDS: cefTRIAXone\\ROCEPHIN 2 GM, Admixture Fee 1 EACH in Sodium Chloride 0.9% 100 ML IVPB SCH (17:05)
[2017-01-11] MEDS ORDERED: Gadobenate Dimeglumine 529 MG/1 ML (20ML VIAL) ONE ×2 (17:07)
[2017-01-12] MEDS: Ketorolac Tromethamine 30 MG/ML VIAL IVP SCH ×5 (00:05→23:49)
--- NOTE | 2017-01-12 00:18 | CON ---
Maulik Paulino PA-C, dictating for Rodolfo Robb M.D. This is a 30-minute initial patient evaluation, in which greater than 50% of the exam was spent in co unseling and coordinating patient's care. Remainder of the exam was spent in review of [facility]'s [facility] record and appropriate imaging studies. CHIEF COMPLAINT: Right-sided low back pain with right groin pain. HISTORY OF PRESENT ILLNESS: Ms. Conley is a pleasant 61-year-old female who presents to the [facility] Emergency Room and was later admitted by Medicine regards to abdominal pain radiated into the rig t side upper back over the past 6 days. She has noticed over the past one day further radiation uppe r back pain into her right groin. Over the course of the last 2 days, she denies any issues with bal ance or fall. She has not noticed any weakness in the extremities. She has not noticed any burning in her hands, paresthesias into the arms or her legs, dropping objects more frequently or changes in her fine motor movements. Due to the back pain, an MRI of the lumbar spine was obtained shows an enh ancement consistent with epidural abscess at the T11-T12 levels. PHYSICAL EXAMINATION: The patient is awake, alert, and appropriate. She has full strength in the bi lateral upper and bilateral lower extremities. Her GCS currently is 15. She has no myelopathic feat ures on exam including no increased tone and Calle's is negative bilaterally. She does speak Engli sh is the second language she said, was able again to follow commands well. She has no worrisome ten derness to palpation along the midline of the thoracic or lumbar spine and the bilateral paraspinal m usculature. IMPRESSION/DIAGNOSES: Epidural abscess T11-T12 with no worrisome canal stenosis. PLAN: I have discussed the patient's case with Dr. Robb as well as reviewed the imaging with him. At this time, the patient will benefit from conservative management and no neurosurgical interventio n is required at this time. We will, however, order TLSO clam-shell brace to be worn when she is up out of bed. Sound team will continue to provide medical guidance and Infectious Disease will help wi th appropriate antibiotics regimen. The patient will be getting a PICC line in the next few days for IV antibiotics. I discussed with the patient and her family the likelihood that this abscess will b e improved with conservative treatments including antibiotics and they are pleased with the news that she does not need surgical intervention. We will check on the patient in the morning. Please do no t hesitate to contact us with any questions or changes in the patient's neurologic status.
[2017-01-12] MEDS: Levothyroxine Sodium 50 MCG TAB PO SCH (05:57)
--- NOTE | 2017-01-12 07:55 | PRG ---
DATE OF SERVICE: 01/12/2017 SUBJECTIVE: Ms. Conley is feeling about the same, pain comes and goes. She is able to ambulate with some help. No respiratory symptoms or abdominal pain, voiding without difficulty. PHYSICAL EXAMINATION: VITAL SIGNS: She has been afebrile. BP 150/77, pulse 63, respirations 16, O2 sat 94%. GENERAL: Awake, alert and oriented. LUNGS: Clear. CARDIOVASCULAR: S1, S2, regular rate. BACK: A little bit of tenderness in the back area paravertebral space. EXTREMITIES: She moves all extremities equally. LABORATORY: White cell count 5.5, hemoglobin 11, platelets 258. No new chemistry results. Hepatiti s and HIV serology negative. Microbiology with group C strep. MRI of the C-spine showed epidural ab scess at T11 with likely facet joint infection. ASSESSMENT AND DISCUSSION: Type 2 diabetes, Group C strep bacteremia, pain in right flank and back a yulisa, now with evidence of diskitis or more likely facet joint infection with paravertebral infection involvement of the nerve root with radicular pain as described by patient and an epidural abscess. Continue Rocephin for 6 weeks at least. We will need to follow up MRIs. Neurosurgical consultation has been obtained. Probably they will recommended conservative management, PICC line placement.
[2017-01-12] MEDS: Famotidine 20 MG TAB PO SCH ×2 (09:00→21:04)
[2017-01-12] MEDS: metFORMIN 500 MG TAB PO SCH ×2 (09:01→17:38)
[2017-01-12] MEDS: Lisinopril 20 MG TAB PO SCH ×2 (09:01→21:04)
[2017-01-12] MEDS: cefTRIAXone\\ROCEPHIN 2 GM, Admixture Fee 1 EACH in Sodium Chloride 0.9% 100 ML IVPB SCH (14:30)
--- NOTE | 2017-01-12 15:10 | HP ---
This is a 30-minute initial hospital visit note, in which 30 minutes were spent in review of the imag ing record, evaluation, and examination of the patient, and formulation of plan. Greater than 50% of time was spent in counseling on Renea Conley. CHIEF COMPLAINT: Lower thoracic epidural abscess, neurologically intact. HISTORY OF PRESENT ILLNESS: I reviewed the notes of my colleague Maulik Hannaley and agreed with the content. Ms. Conley is a 61-year-old woman. She began to have back pain and there was concern of se psis and pyelonephritis. She was admitted for further evaluation. Review of an MRI demonstrates in the lower right side of the thoracic spine and then the foramen and the lateral epidural space and also wrapping around the right side of the facet joint appears to be p urulent material consistent with abscess. The patient has remained neurologically intact and other t blackburn back pain has had no complaints. PHYSICAL EXAMINATION: On exam, she is alert, appropriate. She has full strength in her bilateral lo wer extremity myotomes with no evidence of myelopathy. [facility] IMPRESSION AND PLAN: I had a long discussion with the patient and her family that the brace should b e worn when out of bed for the next 6-12 weeks and this will assist in minimizing pain related to her epidural abscess. Antibiotics may be tailored based on the microbe that is captured. One option fo r capturing the bacteria would be a CT guided needle biopsy. I would not recommend surgical interven tion given the absence of neurological deficit and the clear presence of stability in regard to the p atient's spinal structure. We will arrange followup in my clinic with upright AP and lateral thoraci c spine x-rays in 6 weeks. DIAGNOSIS: Concern of epidural abscess, neurologically intact.
--- NOTE | 2017-01-12 15:20 | PDOC.PN ---
- Subjective Encounter Start Date: 01/12/17 Encounter Start Time: 15:18 Ms. Conley was seen today in follow-up of T10 epidural abscess, and Diabetes mellitus. She says her back is much better since she has been placed in a brace. She was concerned that her blood glucose has dropped some last night. - Objective Resuscitation Status: Resuscitation Status FULL:Full Resuscitation MAR Reviewed: Yes Vital Signs & Weight: Vital Signs (12 hours) Temp Pulse Resp BP BP BP Pulse Ox 01/12/17 09:01 149/88 H 01/12/17 08:00 98.1 F 62 16 01/12/17 07:12 98.1 F 62 16 149/88 H 93 L 01/12/17 04:00 98.5 F 63 16 153/77 H 94 L I&O: 01/11/17 01/12/17 01/13/17 06:59 06:59 06:59 Intake Total 1920 Balance 1920 Result Diagrams: 01/10/17 04:33 01/10/17 04:33 Additional Labs: Accuchecks 01/12/17 01/12/17 01/12/17 11:58 06:03 04:49 POC Glucose 102 107 78 01/11/17 01/11/17 20:46 16:42 POC Glucose 130 H 116 H Phys Exam - Physical Examination HEENT: PERRLA Respiratory: no wheezing, no rales, no rhonchi, clear to auscultation bilateral Cardiovascular: RRR, no significant murmur Gastrointestinal: soft, non-tender, positive bowel sounds Musculoskeletal: no edema Dx/Plan (1) Spinal epidural abscess Code(s): G06.1 - INTRASPINAL ABSCESS AND GRANULOMA Status: Acute (2) Diabetes type 2, controlled Code(s): E11.9 - TYPE 2 DIABETES MELLITUS WITHOUT COMPLICATIONS Status: Chronic (3) Hypertension Code(s): I10 - ESSENTIAL (PRIMARY) HYPERTENSION Status: Chronic (4) Hypothyroidism Code(s): E03.9 - HYPOTHYROIDISM, UNSPECIFIED Status: Chronic - Plan * Spinal epidural abscess- Continue Rocephin * She will need IV Rocephin for a minimum of 6 weeks * HTN-Blood Pressure is elevated will monitor trend and continue PRN Hydralazine * DM- will continue Metformin, but will add a snack in the evenings.
[2017-01-13] MEDS: Levothyroxine Sodium 50 MCG TAB PO SCH (05:18)
[2017-01-13] MEDS: Ketorolac Tromethamine 30 MG/ML VIAL IVP SCH ×3 (05:19→17:59)
[2017-01-13] MEDS: metFORMIN 500 MG TAB PO SCH ×2 (08:21→17:59)
[2017-01-13] MEDS: Famotidine 20 MG TAB PO SCH ×2 (08:21→20:12)
[2017-01-13] MEDS: Lisinopril 20 MG TAB PO SCH ×2 (08:21→20:12)
--- NOTE | 2017-01-13 11:52 | PDOC.PN ---
- Subjective Encounter Start Date: 01/13/17 Encounter Start Time: 11:50 Ms. Conley was seen today in follow-up regarding epidural abscess. She says the pain in her back is controlled with acetaminophen. She was able to rest well last night. - Objective Resuscitation Status: Resuscitation Status FULL:Full Resuscitation MAR Reviewed: Yes Vital Signs & Weight: Vital Signs (12 hours) Temp Pulse Resp BP BP BP Pulse Ox 01/13/17 08:21 174/84 H 01/13/17 08:00 98.0 F 57 L 18 174/84 H 93 L 01/13/17 03:57 98.0 F 59 L 20 147/77 H 96 01/13/17 00:00 98.2 F 63 20 138/82 93 L I&O: 01/12/17 01/13/17 01/14/17 06:59 06:59 06:59 Intake Total 1919 1800 Balance 1919 1800 Result Diagrams: 01/10/17 04:33 01/10/17 04:33 Additional Labs: Accuchecks 01/13/17 01/13/17 01/12/17 11:03 03:57 19:54 POC Glucose 122 H 112 H 121 H 01/12/17 01/12/17 16:31 11:58 POC Glucose 95 102 Phys Exam - Physical Examination HEENT: PERRLA Respiratory: no wheezing, no rales, no rhonchi, clear to auscultation bilateral Cardiovascular: RRR, no significant murmur, no rub Gastrointestinal: soft, non-tender, positive bowel sounds Musculoskeletal: no edema Dx/Plan (1) Spinal epidural abscess Code(s): G06.1 - INTRASPINAL ABSCESS AND GRANULOMA Status: Acute (2) Diabetes type 2, controlled Code(s): E11.9 - TYPE 2 DIABETES MELLITUS WITHOUT COMPLICATIONS Status: Chronic (3) Hypertension Code(s): I10 - ESSENTIAL (PRIMARY) HYPERTENSION Status: Chronic (4) Hypothyroidism Code(s): E03.9 - HYPOTHYROIDISM, UNSPECIFIED Status: Chronic - Plan * Spinal Epidural abscess- continue Rocephin * DM- blood glucose is stable. She did not have any low values last night * HTN- blood pressure is slightly elevated will monitor the trend, and continue Lisinopril, and prn Clonidine
[2017-01-13] MEDS ORDERED: Lorazepam 0.5 MG TAB PO SCH (12:30)
--- NOTE | 2017-01-13 14:10 | SPC ---
SONOGRAPHIC GUIDED LEFT UPPER EXTREMITY PICC PLACEMENT: HISTORY: Epidural abscess. FINDINGS: After explaining the procedure and obtaining informed consent, the left upper extremity was prepped a nd draped in the usual sterile fashion. Sterile technique, buffered local anesthesia, sonographic gu idance, and a 22 gauge needle were used to carefully access the left cephalic vein. Standard [employer] ue was then used to place the tip of a 5 [place] single-lumen PICC so that the tip lies at the level o f the right atrium. The catheter was flushed and secured externally. The patient tolerated the proc edure well and was returned in unchanged condition. Fluoro time=0 seconds. IMPRESSION: Technically successful left upper extremity PICC placement. Catheter is now ready for use. POS: [facility]
[2017-01-13] MEDS: cefTRIAXone\\ROCEPHIN 2 GM, Admixture Fee 1 EACH in Sodium Chloride 0.9% 100 ML IVPB SCH (14:29)
[2017-01-14] MEDS: Ketorolac Tromethamine 30 MG/ML VIAL IVP SCH ×2 (00:39→05:54)
[2017-01-14] MEDS: Levothyroxine Sodium 50 MCG TAB PO SCH (05:55)
[2017-01-14] MEDS: Famotidine 20 MG TAB PO SCH ×2 (08:07→19:49)
[2017-01-14] MEDS: Lisinopril 20 MG TAB PO SCH ×2 (08:07→19:49)
[2017-01-14] MEDS: metFORMIN 500 MG TAB PO SCH ×2 (08:07→17:59)
[2017-01-14] MEDS ORDERED: Benzonatate 100 MG CAP PO PRN (14:26)
--- NOTE | 2017-01-14 14:29 | PDOC.PN ---
- Subjective Encounter Start Date: 01/14/17 Encounter Start Time: 14:27 Ms. Conley was seen today in follow-up of T10 epidural abscess. she is complaining today of a cough, and feeling congested in her chest. she has had this cough for about a month. she denies chest pain or difficulty breathing. - Objective Resuscitation Status: Resuscitation Status FULL:Full Resuscitation MAR Reviewed: Yes Vital Signs & Weight: Vital Signs (12 hours) Temp Pulse Resp BP BP Pulse Ox 01/14/17 11:00 97.4 F L 69 16 177/91 H 94 L 01/14/17 08:19 98.0 F 61 20 176/92 H 94 L 01/14/17 08:07 167/84 H 01/14/17 04:17 97.5 F L 59 L 16 150/77 H 96 I&O: 01/13/17 01/14/17 01/15/17 06:59 06:59 06:59 Intake Total 1800 1500 Balance 1800 1500 Result Diagrams: 01/10/17 04:33 01/10/17 04:33 Additional Labs: Accuchecks 01/14/17 01/14/17 01/13/17 11:25 05:12 20:46 POC Glucose 90 118 H 120 H 01/13/17 16:53 POC Glucose 117 H Phys Exam - Physical Examination HEENT: PERRLA Respiratory: no rales, no rhonchi, wheezing present, clear to auscultation bilateral Cardiovascular: RRR, no significant murmur Gastrointestinal: soft, non-tender, positive bowel sounds Musculoskeletal: no edema Dx/Plan (1) Spinal epidural abscess Code(s): G06.1 - INTRASPINAL ABSCESS AND GRANULOMA Status: Acute (2) Diabetes type 2, controlled Code(s): E11.9 - TYPE 2 DIABETES MELLITUS WITHOUT COMPLICATIONS Status: Chronic (3) Hypertension Code(s): I10 - ESSENTIAL (PRIMARY) HYPERTENSION Status: Chronic (4) Hypothyroidism Code(s): E03.9 - HYPOTHYROIDISM, UNSPECIFIED Status: Chronic - Plan * T10 epidural abscess- will continue Rocephin IV * Patient has had the PICC line placed * Will await Case Management opinion with regards to outpatient IV antibiotics * Cough- suspect this may be allergy medicated * HTN- blood pressure is elevated today as well will add Amlodipine * Hypothyroidism- continue Levothyroxine.
[2017-01-14] MEDS ORDERED: Loratadine 10 MG TAB PO SCH (14:30)
[2017-01-14] MEDS: cefTRIAXone\\ROCEPHIN 2 GM, Admixture Fee 1 EACH in Sodium Chloride 0.9% 100 ML IVPB SCH (14:47)
[2017-01-14] MEDS: traMADol HCl 50 MG TAB PO PRN (19:48)
[2017-01-14] MEDS: guaiFENesin ER 600 MG TAB PO SCH (19:49)
[2017-01-14] MEDS: Morphine 4 MG/ML VIAL SLOW IVP PRN (20:35)
[2017-01-15] MEDS: Levothyroxine Sodium 50 MCG TAB PO SCH (06:24)
[2017-01-15] MEDS: traMADol HCl 50 MG TAB PO PRN ×3 (06:24→20:40)
[2017-01-15] MEDS: Lisinopril 20 MG TAB PO SCH ×2 (08:50→20:37)
[2017-01-15] MEDS: metFORMIN 500 MG TAB PO SCH ×2 (08:50→18:00)
[2017-01-15] MEDS: Amlodipine 5 MG TAB PO SCH (08:50)
[2017-01-15] MEDS: guaiFENesin ER 600 MG TAB PO SCH ×2 (08:50→20:37)
[2017-01-15] MEDS: Famotidine 20 MG TAB PO SCH ×2 (08:51→20:37)
[2017-01-15] MEDS: cefTRIAXone\\ROCEPHIN 2 GM, Admixture Fee 1 EACH in Sodium Chloride 0.9% 100 ML IVPB SCH (14:54)
--- NOTE | 2017-01-15 16:05 | PDOC.PN ---
- Subjective Encounter Start Date: 01/15/17 Encounter Start Time: 15:54 Ms. Conley was seen today in follow-up. She says she felt a bit dizzy when she got up to sit by the window. She says it lasted about 20 minutes and then improved. - Objective Resuscitation Status: Resuscitation Status FULL:Full Resuscitation MAR Reviewed: Yes Vital Signs & Weight: Vital Signs (12 hours) Temp Pulse Resp BP BP Pulse Ox 01/15/17 08:50 65 153/79 H 01/15/17 08:00 98.1 F 65 16 153/79 H 94 L I&O: 01/14/17 01/15/17 01/16/17 06:59 06:59 06:59 Intake Total 1500 500 Balance 1500 500 Result Diagrams: 01/10/17 04:33 01/10/17 04:33 Additional Labs: Accuchecks 01/15/17 01/15/17 01/14/17 11:24 04:18 20:15 POC Glucose 155 H 124 H 108 01/14/17 16:27 POC Glucose 109 Phys Exam - Physical Examination HEENT: PERRLA Respiratory: no wheezing, no rales, no rhonchi, clear to auscultation bilateral Cardiovascular: RRR, no significant murmur Gastrointestinal: soft, non-tender, positive bowel sounds Musculoskeletal: no edema Dx/Plan (1) Spinal epidural abscess Code(s): G06.1 - INTRASPINAL ABSCESS AND GRANULOMA Status: Acute (2) Diabetes type 2, controlled Code(s): E11.9 - TYPE 2 DIABETES MELLITUS WITHOUT COMPLICATIONS Status: Chronic (3) Hypertension Code(s): I10 - ESSENTIAL (PRIMARY) HYPERTENSION Status: Chronic (4) Hypothyroidism Code(s): E03.9 - HYPOTHYROIDISM, UNSPECIFIED Status: Chronic - Plan * Dizziness- ? etiology, this may be due to Amlodipine which was recently added. Will see how she feels tomorrow * Spinal epidural abscess- continue Rocephin, and will await outpatient Antibiotic arrangements * HTN- continue Amlodipine and re-assess for possible adverse effects.
[2017-01-15] MEDS: diphenhydrAMINE 25 MG CAP PO PRN (20:41)
[2017-01-15 22:40] VITALS: BMI 29.9
[2017-01-16] MEDS: Levothyroxine Sodium 50 MCG TAB PO SCH (05:24)
[2017-01-16] MEDS: Amlodipine 5 MG TAB PO SCH (08:34)
[2017-01-16] MEDS: guaiFENesin ER 600 MG TAB PO SCH ×2 (08:34→20:39)
[2017-01-16] MEDS: Lisinopril 20 MG TAB PO SCH ×2 (08:34→20:38)
[2017-01-16] MEDS: metFORMIN 500 MG TAB PO SCH ×2 (08:34→19:22)
[2017-01-16] MEDS: Famotidine 20 MG TAB PO SCH ×2 (08:35→20:39)
[2017-01-16] MEDS: traMADol HCl 50 MG TAB PO PRN ×3 (09:13→22:41)
--- NOTE | 2017-01-16 12:37 | PRG ---
DATE OF SERVICE: 01/16/2017 SUBJECTIVE: The pain is a little bit better, but still quite intense. She is able to ambulate a lit tle bit. No respiratory symptoms or abdominal pain, no diarrhea, voiding without difficulty. PHYSICAL EXAMINATION: VITAL SIGNS: Not remarkably changed. No fever. GENERAL: Awake, alert, oriented. LUNGS: Clear. HEART: S1, S2, regular rate. ABDOMEN: Soft. EXTREMITIES: Moves all extremities equally. LABORATORY: White cell count 5.5, hemoglobin 11.4, platelets 258. The blood cultures from 7 with group C streptococcus. The repeat ones from 01/09/2017 negative. ASSESSMENT AND DISCUSSION: Type 2 diabetes, Group C strep bacteremia, pain in the right flank and ba ck area with evidence of diskitis, facet joint infection and epidural infection, paravertebral infect ion with radiculopathy in the lumbosacral area. The patient to continue on IV Rocephin. The end date of therapy will be sometime around January 27 , weekly labs with CBC, CRP, and CMP. Follow up imaging studies in the next few weeks depending on t he clinical progress.
--- NOTE | 2017-01-16 14:14 | PDOC.PN ---
- Subjective Encounter Start Date: 01/16/17 Encounter Start Time: 14:13 Ms. Conley was seen today in follow-up. She continues to have pain in her back which is not completely resolved with Ultram at the current dose. - Objective Resuscitation Status: Resuscitation Status FULL:Full Resuscitation MAR Reviewed: Yes Vital Signs & Weight: Vital Signs (12 hours) Temp Pulse Resp BP Pulse Ox 01/16/17 08:00 98.1 F 64 18 157/88 H 93 L Weight Weight 179 lb 14.355 oz I&O: 01/15/17 01/16/17 01/17/17 06:59 06:59 06:59 Intake Total 500 600 Balance 500 600 Result Diagrams: 01/10/17 04:33 01/10/17 04:33 Additional Labs: Accuchecks 01/16/17 01/16/17 01/15/17 12:01 05:24 20:48 POC Glucose 114 H 88 112 H 01/15/17 16:20 POC Glucose 120 H Phys Exam - Physical Examination HEENT: PERRLA Respiratory: no wheezing, no rales, no rhonchi, clear to auscultation bilateral Cardiovascular: RRR, no significant murmur, no rub Gastrointestinal: soft, non-tender, positive bowel sounds Musculoskeletal: no edema Dx/Plan (1) Spinal epidural abscess Code(s): G06.1 - INTRASPINAL ABSCESS AND GRANULOMA Status: Acute (2) Diabetes type 2, controlled Code(s): E11.9 - TYPE 2 DIABETES MELLITUS WITHOUT COMPLICATIONS Status: Chronic (3) Hypertension Code(s): I10 - ESSENTIAL (PRIMARY) HYPERTENSION Status: Chronic (4) Hypothyroidism Code(s): E03.9 - HYPOTHYROIDISM, UNSPECIFIED Status: Chronic - Plan * Spinal Epidural Abscess- continue Rocephin IV- Outpatient arrangement are in progress * HTN- blood pressure is a bit better. She did not have any dizziness today- will continue Amlodipine.
[2017-01-16] MEDS: cefTRIAXone\\ROCEPHIN 2 GM, Admixture Fee 1 EACH in Sodium Chloride 0.9% 100 ML IVPB SCH (15:42)
[2017-01-17] MEDS: Levothyroxine Sodium 50 MCG TAB PO SCH (05:24)
[2017-01-17] MEDS: traMADol HCl 50 MG TAB PO PRN (05:24)
[2017-01-17 08:30] VITALS: TEMP 97.7
[2017-01-17 10:28] VITALS: BP 137/77
[2017-01-17] MEDS: Lisinopril 20 MG TAB PO SCH (10:28)
[2017-01-17] MEDS: guaiFENesin ER 600 MG TAB PO SCH (10:28)
[2017-01-17] MEDS: Amlodipine 5 MG TAB PO SCH (10:29)
[2017-01-17] MEDS: Famotidine 20 MG TAB PO SCH (10:29)
[2017-01-17] MEDS: metFORMIN 500 MG TAB PO SCH (10:30)
--- NOTE | 2017-01-17 13:21 | PDOC.PN ---
- Subjective Encounter Start Date: 01/17/17 Encounter Start Time: 10:10 -: old records requested/rev has less pain in back, no fever Patient seen and examined. No new complaints. No overnight events - Objective Resuscitation Status: Resuscitation Status FULL:Full Resuscitation MAR Reviewed: Yes Vital Signs & Weight: Vital Signs (12 hours) Temp Pulse Resp BP Pulse Ox 01/17/17 10:29 74 01/17/17 10:27 74 137/77 01/17/17 08:29 97.7 F 74 16 169/96 H 96 01/17/17 08:00 97.7 F 74 16 Weight Weight 179 lb 14.355 oz I&O: 01/16/17 01/17/17 01/18/17 06:59 06:59 06:59 Intake Total 600 Balance 600 Result Diagrams: 01/10/17 04:33 01/10/17 04:33 Additional Labs: Accuchecks 01/17/17 01/17/17 01/17/17 11:43 07:55 04:42 POC Glucose 96 87 84 01/16/17 01/16/17 22:17 16:08 POC Glucose 107 122 H Phys Exam - Physical Examination Constitutional: NAD HEENT: PERRLA, moist MMs, sclera anicteric Neck: no JVD, supple Respiratory: no wheezing, no rales, no rhonchi Cardiovascular: RRR, no significant murmur, no rub Gastrointestinal: soft, non-tender, no distention, positive bowel sounds Musculoskeletal: no edema, pulses present Neurological: non-focal, normal sensation, moves all 4 limbs Psychiatric: normal affect, A&O x 3 Skin: no rash, normal turgor Dx/Plan (1) Bacteremia due to Streptococcus Code(s): R78.81 - BACTEREMIA; B95.5 - UNSP STREPTOCOCCUS THE CAUSE OF DISEASES CLASSD ELSWHR Status: Acute Comment: group C streptococcus (2) Sepsis Code(s): A41.9 - SEPSIS, UNSPECIFIED ORGANISM Status: Acute (3) Diabetes type 2, controlled Code(s): E11.9 - TYPE 2 DIABETES MELLITUS WITHOUT COMPLICATIONS Status: Chronic (4) Hypertension Code(s): I10 - ESSENTIAL (PRIMARY) HYPERTENSION Status: Chronic (5) Hypothyroidism Code(s): E03.9 - HYPOTHYROIDISM, UNSPECIFIED Status: Chronic (6) Spinal epidural abscess Code(s): G06.1 - INTRASPINAL ABSCESS AND GRANULOMA Status: Acute - Plan cont current plan of care, plan discussed w/ family, continue antibiotics, outreach and education social worker * continue iv rocephin for 6 week * medication reviewed as below * symptomatic treatment * needs outpt iv antibiotic arrangement * pain controlled * discussed with family bedside. Review of Systems - Review of Systems ENT: negative: Ear Pain, Ear Discharge, Nose Pain, Nose Discharge, Nose Congestion, Mouth Pain, Mouth Swelling, Throat Pain, Throat Swelling, Other Respiratory: negative: Cough, Dry, Shortness of Breath, Hemoptysis, SOB with Excertion, Pleuritic Pain, Sputum, Wheezing Cardiovascular: negative: Chest Pain, Palpitations, Orthopnea, Paroxysmal Noc. Dyspnea, Edema, Light Headedness, Other Gastrointestinal: negative: Nausea, Vomiting, Abdominal Pain, Diarrhea, Constipation, Melena, Hematochezia, Other Genitourinary: negative: Dysuria, Frequency, Incontinence, Hematuria, Retention , Other Musculoskeletal: negative: Neck Pain, Shoulder Pain, Arm Pain, Back Pain, Hand Pain, Leg Pain, Foot Pain, Other Skin: negative: Rash, Lesions, Nilson, Bruising, Other - Medications/Allergies Allergies/Adverse Reactions: Allergies Allergy/AdvReac Type Severity Reaction Status Date / Time No Known Allergies Allergy Unverified 01/09/17 02:11 Medications: Current Medications Acetaminophen (Tylenol) 1,000 mg PO Q6H PRN PRN Reason: Headache/Fever or Mild Pain Last Admin: 01/16/17 09:13 Dose: 1,000 mg Amlodipine Besylate (Norvasc) 5 mg PO DAILY [facility] Last Admin: 01/17/17 10:29 Dose: 5 mg Benzonatate (Tessalon) 100 mg PO Q4H PRN PRN Reason: Cough Last Admin: 01/14/17 16:36 Dose: 100 mg Clonidine (Catapres) 0.1 mg PO Q4H PRN PRN Reason: Systolic BP > 180 Dextrose/Water (Dextrose 50%) 25 gm SLOW IVP PRN PRN PRN Reason: Hypoglycemia Diphenhydramine HCl (Benadryl) 25 mg PO Q8H PRN PRN Reason: Allergies Last Admin: 01/15/17 20:41 Dose: 25 mg Famotidine (Pepcid) 20 mg PO BID [facility] Last Admin: 01/17/17 10:29 Dose: 20 mg Glucagon (Glucagon) 1 mg IM PRN PRN PRN Reason: Hypoglycemia Guaifenesin (Mucinex) 600 mg PO Q12HR [facility] Last Admin: 01/17/17 10:28 Dose: 600 mg Hydralazine HCl (Apresoline) 10 mg SLOW IVP Q4H PRN PRN Reason: Systolic BP > 180 Dextrose/Water (D5w) 1,000 mls @ 0 mls/hr IV .Q0M PRN; As Directed PRN Reason: Hypoglycemia Ceftriaxone Sodium 2 gm/Miscellaneous Medication 1 each/ Sodium Chloride 100 mls @ 200 mls/hr IVPB 1500 [facility] Last Admin: 01/16/17 15:42 Dose: 100 mls Insulin Human Lispro (Humalog) 0 units SC .MILD SLIDING SCALE PRN PRN Reason: Mild Correctional Scale Insulin Human Lispro (Humalog) 0 units SC .BEDTIME SLIDING SC PRN PRN Reason: Bedtime Correctional Scale Levothyroxine Sodium (Synthroid) 50 mcg PO 0600 [facility] Last Admin: 01/17/17 05:24 Dose: 50 mcg Lisinopril (Zestril) 20 mg PO BID [facility] Last Admin: 01/17/17 10:28 Dose: 20 mg Loratadine (Claritin) 10 mg PO DAILYPRN [facility] Metformin HCl (Glucophage) 500 mg PO BID[facility] Last Admin: 01/17/17 10:30 Dose: Not Given Morphine Sulfate (Morphine Sulfate) 4 mg SLOW IVP Q4H PRN PRN Reason: Pain Last Admin: 01/14/17 20:35 Dose: 4 mg Ondansetron HCl (Zofran Odt) 4 mg PO Q6H PRN PRN Reason: Nausea/Vomiting Ondansetron HCl (Zofran) 4 mg IVP Q6H PRN PRN Reason: Nausea/Vomiting Last Admin: 01/17/17 07:49 Dose: 4 mg Sodium Chloride (Flush - Normal Saline) 10 ml IVF Q12HR [facility] Last Admin: 01/17/17 07:49 Dose: 10 ml Sodium Chloride (Flush - Normal Saline) 10 ml IVF PRN PRN PRN Reason: Saline Flush Last Admin: 01/15/17 14:55 Dose: 10 ml Tramadol HCl (Ultram) 50 mg PO Q6H PRN PRN Reason: Pain Last Admin: 01/16/17 09:13 Dose: 50 mg Tramadol HCl (Ultram) 100 mg PO Q6H PRN PRN Reason: Pain 2ND LINE Last Admin: 01/17/17 05:24 Dose: 100 mg
--- NOTE | 2017-01-17 15:55 | DIS ---
PRIMARY CARE PHYSICIAN: Dr. Walker. DATE OF ADMISSION: 01/09/2017 DATE OF DISCHARGE: 01/17/2017 DISCHARGE DISPOSITION: Home with outpatient IV antibiotic therapy. PRIMARY DISCHARGE DIAGNOSES: 1. Bacteremia due to Streptococcus. 2. Epidural abscess. 3. Sepsis. SECONDARY DISCHARGE DIAGNOSES: Hypothyroidism, hypertension, diabetes type 2. PRIMARY PROCEDURE/OPERATION: PICC line. RADIOLOGICAL INVESTIGATION: Abdomen and pelvis CT scan on admission did not show any acute process. Echocardiography showed normal EF without any vegetation. Thoracic and lumbar spine MRI was done whi ch showed pathological enhancement within the vertebral canal, epidural abscess. TEST RESULTS PENDING ON DISCHARGE: None. SIGNIFICANT LABORATORY: WBC 5.5, hemoglobin 11.4, platelets 258. Sodium 137, potassium 3.7, BUN 12 , creatinine 0.65. LFTs normal. Urinalysis normal. Urine drug screen negative. Hepatitis profile and HIV negative. Blood culture negative. Urine culture negative. DISCHARGE MEDICATIONS: The patient will be discharged on Rocephin 2 gram IV daily for a total of 6 w eeks, Tylenol #3 one or two tablets p.o. q.6 hourly p.r.n., Synthroid 50 mcg p.o. daily, lisinopril 2 0 mg p.o. b.i.d., metformin 500 mg p.o. b.i.d. CONTRAINDICATIONS: None. CODE STATUS: FULL CODE. INPATIENT CONSULTANTS: Dr. Smith was consulted while in hospital and neurosurgeon, Dr. Robb was co nsulted while in hospital. TEST RESULTS PENDING ON DISCHARGE: None. ALLERGIES: No known drug allergy. DISCHARGE PLAN: Post hospital, the patient is advised to follow up with Dr. Smith in 1 week as well as Dr. Robb in 2 weeks. HOSPITAL COURSE: A 61-year-old female with above-mentioned medical problem who was admitted by Dr. Ulisses nuñez. Please see his H&P for further details. This patient had bacteremia with Streptococcus. She d id not have any sore throat. The source of infection was not clear, but this patient was complaining of flank pain. CT of the abdomen and pelvis was negative. Her pain was so unbearable and we suspec jules spine involvement and that is why we did thoracic and lumbar spine MRI which confirmed epidural a bscess. We consulted neurosurgeon, but they did not think that this patient required any surgical in tervention. We consulted Dr. Smith and Dr. Smith recommended to continue Rocephin therapy. At this point, this patient needs 5-6 weeks of IV antibiotic therapy and with the help of case management director, we ar ranged outpatient IV antibiotic therapy. PICC line was placed. The patient's pain is well controlle d with the complaint of medication. She is afebrile and hemodynamically stable. The patient underst ands probable duration of antibiotic therapy for 6 weeks and then she will follow up with Dr. Smith a nd neurosurgeon for outpatient evaluation. We did echocardiography and ruled out vegetation. Today I saw this patient at bedside and plan of ca re discussed with the patient's family member. Total time spent on discharge day 31 minutes.
[2017-01-17] MEDS: cefTRIAXone\\ROCEPHIN 2 GM, Admixture Fee 1 EACH in Sodium Chloride 0.9% 100 ML IVPB SCH (16:21)
== END 2017-01-17 18:20 | disposition home or self-care (01) | DRG 871 ==
LOC: SCSER 00:12 → T4-B 01:20
PROVIDERS: ADMIT Family Medicine; ATTEND Family Medicine
PROC: 02H633Z Insertion of Infusion Device into Right Atrium, Percutaneous Approach (ICD-10-PCS; principal; 2017-01-13)
PROC: B244ZZZ Ultrasonography of Right Heart (ICD-10-PCS; 2017-01-13)
DX: A40.8 Other streptococcal sepsis (principal); G06.1 Intraspinal abscess and granuloma; I10 Essential (primary) hypertension; E11.9 Type 2 diabetes mellitus without complications; Z79.84 Long term (current) use of oral hypoglycemic drugs; E03.9 Hypothyroidism, unspecified; M46.47 Discitis, unspecified, lumbosacral region; M54.17 Radiculopathy, lumbosacral region; M46.57 Other infective spondylopathies, lumbosacral region; F32.9 Major depressive disorder, single episode, unspecified
CPT/HCPCS: 36415; 36416; 36569; 51701; 72157; 72158; 74177; 80053; 80074; 80202; 80306; 81003; 81015; 83605; 83690; 85007; 85025; 85027; 87040; 87086; 87389; 90471; 90682; 90732; 93306; 96361; 96365; 96375; A4216; A4353; A9579; C1751; G0008; G0009; J0290; J0360; J0696; J1644; J1885; J2270; J2405; J3370; J7050; L0639; Q2036

== ENCOUNTER 2017-01-18 14:42 | Outpatient (CLI) | payer SELFPAY ==
[2017-01-18] MEDS ORDERED: cefTRIAXone\\ROCEPHIN 2 GM in Sodium Chloride 0.9% 100 ML IVPB SCH (15:00)
[2017-01-18 15:30] VITALS: BP 122/60; TEMP 97.8
== END 2017-01-18 14:43 | disposition home or self-care (01) ==
LOC: ONC/OP 14:42
PROVIDERS: ATTEND Internal Medicine Infectious Disease
DX: G06.1 Intraspinal abscess and granuloma (principal)
CPT/HCPCS: 96365; J0696; J7050

== ENCOUNTER 2017-02-15 13:10 | Outpatient (CLI) | payer OTHER ==
--- NOTE | 2017-02-15 16:06 | RAD ---
THORACIC SPINE THREE VIEWS: History: Thoracic epidural abscess. Correlation is made to MRI thoracic spine, 01-11-17. That exam revealed abnormal epidural enhancement at the T11-12 level. FINDINGS: The thoracic vertebrae maintain normal height and alignment. There is no evidence of bony erosion or compression. Mild degenerative spurring. On the frontal view there is slight curvature to the left wi th apex at T12. PICC line remains in position with the tip overlying the upper SVC. IMPRESSION: Thoracic spine films show mild degenerative changes of the thoracic spine. No other abnormality ident ified. POS: ANNY
== END 2017-02-15 13:11 | disposition home or self-care (01) ==
LOC: TBSIIMAG 13:10
PROVIDERS: ATTEND Surgery
DX: G06.2 Extradural and subdural abscess, unspecified (principal); M47.814 Spondylosis without myelopathy or radiculopathy, thoracic region
CPT/HCPCS: 72070

== ENCOUNTER 2018-06-04 13:37 | Outpatient (CLI) | payer OTHER ==
--- NOTE | 2018-06-04 14:26 | MMO ---
Bilateral MAMMO Bilat Screen DDI. CLINICAL HISTORY: Patient is 63 years old and is seen for screening. The patient has no family history of breast cancer. The patient has no personal history of cancer. VIEWS: The views performed were: bilateral craniocaudal and bilateral mediolateral oblique. This study has been interpreted with the assistance of computer-aided detection. MAMMOGRAM FINDINGS: There are scattered fibroglandular densities. Multiple left breast nodules at 12:00. In the right breast, there are no suspicious masses, calcifications or areas of architectural distortion. IMPRESSION: FINDING IN THE LEFT BREAST REQUIRES ADDITIONAL EVALUATION. SPOT COMPRESSION IS RECOMMENDED. AN ULTRASOUND EXAM IS RECOMMENDED IF NEEDED. ACR BI-RADS Category 0 - Incomplete: Need additional imaging evaluation. [facility] will notify the patient of the need for additional imaging services. MAMMOGRAPHY NOTE: 1. A negative mammogram report should not delay a biopsy if a dominant of clinically suspicious mass is present. 2. Approximately 10% to 15% of breast cancers are not detected by mammography. 3. Adenosis and dense breasts may obscure an underlying neoplasm.
== END 2018-06-04 13:38 | disposition home or self-care (01) ==
LOC: SCSMAMMO 13:37
PROVIDERS: ATTEND Internal Medicine
DX: Z12.31 Encounter for screening mammogram for malignant neoplasm of breast (principal)
CPT/HCPCS: 77067

== ENCOUNTER 2018-06-07 09:42 | Outpatient (CLI) | payer OTHER ==
--- NOTE | 2018-06-07 10:53 | MMO ---
Left Breast MAMMO Unilat Diag DDI LT+FRANK. CLINICAL HISTORY: Patient is 63 years old and is seen for diagnostic exam. The patient has no family history of breast cancer. The patient has no personal history of cancer. VIEWS: The views performed were: . FILMS COMPARED: The present examination has been compared to prior imaging studies performed at [facility] on 06/04/2018, and at [facility] on 06/07/2018. MAMMOGRAM FINDINGS: There are scattered fibroglandular densities. There are multiple masses of varying size with circumscribed margins seen in the central region of the left breast. There are no suspicious masses, suspicious calcifications, or new areas of architectural distortion. IMPRESSION: THERE IS NO MAMMOGRAPHIC EVIDENCE OF MALIGNANCY. A ROUTINE FOLLOW-UP MAMMOGRAM IN 1 YEAR IS RECOMMENDED. THE RESULTS OF THIS EXAM WERE SENT TO THE PATIENT. ACR BI-RADS Category 2 - Benign finding MAMMOGRAPHY NOTE: 1. A negative mammogram report should not delay a biopsy if a dominant of clinically suspicious mass is present. 2. Approximately 10% to 15% of breast cancers are not detected by mammography. 3. Adenosis and dense breasts may obscure an underlying neoplasm.
--- NOTE | 2018-06-07 11:26 | ULT ---
LEFT BREAST ULTRASOUND: Date: 06/07/18 HISTORY: Multiple nodules in the central and upper aspect of the left breast on prior mammogram. FINDINGS: There are several small hyperechoic nodules in the left breast, including a 0.3 x 0.4 cm nodule at 12 o'clock, a 0.2 x 0.4 cm nodule at 8 o'clock, and a 0.2 x 03 cm nodule at 7 o'clock. The small hyperechoic nodular areas appear to correspond to the multiple small nodules seen on mammog jannette. IMPRESSION: BIRADS Category 2 - Benign findings. Continued annual follow-up mammograms. Findings were discussed with the patient. POS: OFF
== END 2018-06-07 09:43 | disposition home or self-care (01) ==
LOC: BICMAMMO 09:42
PROVIDERS: ATTEND Internal Medicine
DX: N63.20 Unspecified lump in the left breast, unspecified quadrant (principal)
CPT/HCPCS: G0279